=== PATIENT | female | born 2000 | race Caucasian/White ===

== ENCOUNTER 2021-07-01 12:29 | Emergency (ER) | payer BC ==
[2021-07-01] MEDS ORDERED: SODIUM CHLORIDE 0.9% 1,000 ML IV ONE (13:06)
--- NOTE | 2021-07-01 13:23 | ED ---
General Adult HPI - General Chief complaint: Nausea/Vomiting/Diarrhea Stated complaint: 6Wks Preg/Dizziness/Cramping Time Seen by Provider: 07/01/21 12:57 Source: patient, RN notes reviewed Mode of arrival: ambulatory Limitations: no limitations - History of Present Illness Initial comments: Patient is a pleasant 21-year-old female presenting to the emergency department with problems with . Patient believes her last menstrual. Was around May 21. Patient believes she is 6-7 weeks . Patient has had daily nausea and vomiting for the first couple hours. Nausea has improved at this time and does not want medication at this time. Patient has been feeling lightheaded. Patient has occasional abdominal cramping, none at this time. No vaginal bleeding or discharge. - Related Data Home Medications Medication Instructions Recorded Confirmed Ondansetron Odt [Zofran Odt] 4 mg PO Q12HR PRN 07/01/21 07/01/21 Previous Rx's Medication Instructions Recorded Ondansetron Odt [Zofran Odt] 4 mg PO Q8HR PRN #10 tab 07/01/21 Allergies Allergy/AdvReac Type Severity Reaction Status Date / Time No Known Allergies Allergy Verified 07/01/21 13:23 Review of Systems ROS Statement: Those systems with pertinent positive or pertinent negative responses have been documented in the HPI. ROS Other: All systems not noted in ROS Statement are negative. Constitutional: Denies: fever Eyes: Denies: eye pain ENT: Denies: ear pain Respiratory: Denies: cough Cardiovascular: Denies: chest pain Endocrine: Denies: fatigue Gastrointestinal: Reports: nausea, vomiting Genitourinary: Reports: as per HPI. Denies: discharge Musculoskeletal: Denies: back pain Skin: Denies: rash Neurological: Denies: weakness Past Medical History Past Medical History: No Reported History History of Any Multi-Drug Resistant Organisms: None Reported Past Surgical History: No Surgical Hx Reported Past Psychological History: Anxiety, Depression Smoking Status: Former smoker Past Alcohol Use History: None Reported Past Drug Use History: None Reported General Exam Limitations: no limitations General appearance: alert, in no apparent distress Head exam: Present: normocephalic Eye exam: Present: normal appearance Neck exam: Present: normal inspection Respiratory exam: Present: normal lung sounds bilaterally Cardiovascular Exam: Present: regular rate, normal rhythm GI/Abdominal exam: Present: soft. Absent: distended, tenderness, guarding, rebound External exam: Present: normal external exam (RN Korin was present during the entire exam) Speculum exam: Present: normal speculum exam By manual exam: Present: normal by manual exam. Absent: cervical motion tenderness, adnexal tenderness, adnexal mass Extremities exam: Present: normal inspection Neurological exam: Present: alert Psychiatric exam: Present: normal affect, normal mood Skin exam: Present: normal color Course Vital Signs 07/01/21 12:37 Temperature 98.1 F Pulse Rate 88 Respiratory 18 Rate Blood Pressure 116/70 O2 Sat by Pulse 98 Oximetry Medical Decision Making - Medical Decision Making Patient reevaluated and resting comfortably in bed. Patient updated on results and need for follow-up. Case was discussed with Dr. Juárez including ultrasound report was also comfortable with discharge and follow-up. Patient does request nausea medication for discharge. - Lab Data Result diagrams: 07/01/21 13:27 07/01/21 13:27 Lab Results 07/01/21 07/01/21 07/01/21 Range/Units 13:27 13:27 13:27 WBC 9.2 (3.8-10.6) k/uL RBC 4.15 (3.80-5.40) m/uL Hgb 14.0 (11.4-16.0) gm/dL Hct 40.5 (34.0-46.0) % MCV 97.5 (80.0-100.0) fL MCH 33.7 (25.0-35.0) pg MCHC 34.5 (31.0-37.0) g/dL RDW 11.5 (11.5-15.5) % Plt Count 204 (150-450) k/uL MPV 8.6 Neutrophils % 68 % Lymphocytes % 18 % Monocytes % 9 % Eosinophils % 2 % Basophils % 0 % Neutrophils # 6.2 (1.3-7.7) k/uL Lymphocytes # 1.7 (1.0-4.8) k/uL Monocytes # 0.9 (0-1.0) k/uL Eosinophils # 0.2 (0-0.7) k/uL Basophils # 0.0 (0-0.2) k/uL Sodium 136 L (137-145) mmol/L Potassium 4.0 (3.5-5.1) mmol/L Chloride 104 (98-107) mmol/L Carbon Dioxide 23 (22-30) mmol/L Anion Gap 9 mmol/L BUN 12 (7-17) mg/dL Creatinine 0.48 L (0.52-1.04) mg/dL Est GFR (CKD-EPI)AfAm >90 (>60 ml/min/1.73 sqM) Est GFR (CKD-EPI)NonAf >90 (>60 ml/min/1.73 sqM) Glucose 98 (74-99) mg/dL Calcium 9.9 (8.4-10.2) mg/dL Total Bilirubin 0.7 (0.2-1.3) mg/dL AST 23 (14-36) U/L ALT 11 (4-34) U/L Alkaline Phosphatase 33 L (38-126) U/L Total Protein 7.1 (6.3-8.2) g/dL Albumin 4.4 (3.5-5.0) g/dL HCG, Quant 58473.4 mIU/mL Urine Color Urine Appearance (Clear) Urine pH (5.0-8.0) Ur Specific [place] (1.001-1.035) Urine Protein (Negative) Urine Glucose (UA) (Negative) Urine Ketones (Negative) Urine Blood (Negative) Urine Nitrite (Negative) Urine Bilirubin (Negative) Urine Urobilinogen (<2.0) mg/dL Ur Leukocyte Esterase (Negative) Urine WBC (0-5) /hpf Ur Squamous Epith Cells (0-4) /hpf Urine Mucus (None) /hpf Blood Type O Positive Blood Type Recheck No Previous Record Bld Type Recheck Status CABO Indicated 07/01/21 Range/Units 13:27 WBC (3.8-10.6) k/uL RBC (3.80-5.40) m/uL Hgb (11.4-16.0) gm/dL Hct (34.0-46.0) % MCV (80.0-100.0) fL MCH (25.0-35.0) pg MCHC (31.0-37.0) g/dL RDW (11.5-15.5) % Plt Count (150-450) k/uL MPV Neutrophils % % Lymphocytes % % Monocytes % % Eosinophils % % Basophils % % Neutrophils # (1.3-7.7) k/uL Lymphocytes # (1.0-4.8) k/uL Monocytes # (0-1.0) k/uL Eosinophils # (0-0.7) k/uL Basophils # (0-0.2) k/uL Sodium (137-145) mmol/L Potassium (3.5-5.1) mmol/L Chloride (98-107) mmol/L Carbon Dioxide (22-30) mmol/L Anion Gap mmol/L BUN (7-17) mg/dL Creatinine (0.52-1.04) mg/dL Est GFR (CKD-EPI)AfAm (>60 ml/min/1.73 sqM) Est GFR (CKD-EPI)NonAf (>60 ml/min/1.73 sqM) Glucose (74-99) mg/dL Calcium (8.4-10.2) mg/dL Total Bilirubin (0.2-1.3) mg/dL AST (14-36) U/L ALT (4-34) U/L Alkaline Phosphatase (38-126) U/L Total Protein (6.3-8.2) g/dL Albumin (3.5-5.0) g/dL HCG, Quant mIU/mL Urine Color Yellow Urine Appearance Cloudy H (Clear) Urine pH 7.5 (5.0-8.0) Ur Specific [place] 1.017 (1.001-1.035) Urine Protein Negative (Negative) Urine Glucose (UA) Negative (Negative) Urine Ketones Negative (Negative) Urine Blood Negative (Negative) Urine Nitrite Negative (Negative) Urine Bilirubin Negative (Negative) Urine Urobilinogen <2.0 (<2.0) mg/dL Ur Leukocyte Esterase Trace H (Negative) Urine WBC 6 H (0-5) /hpf Ur Squamous Epith Cells 3 (0-4) /hpf Urine Mucus Rare H (None) /hpf Blood Type Blood Type Recheck Bld Type Recheck Status - Radiology Data Radiology results: report reviewed (Ultrasound shows viable IUP rate 119. Estimated 6 weeks 4 days. Large cystic area right adnexa indeterminate etiology. Ovarian cyst is in the differential, other etiologies not excluded.) Disposition Clinical Impression: Hyperemesis gravidarum Disposition: HOME SELF-CARE Condition: Stable Instructions (If sedation given, give patient instructions): Acute Nausea and Vomiting (ED) Additional Instructions: Please do follow-up with your [facility] group in the next day or 2 for recheck. Return for not tolerating fluids, increased pain, fevers, worsening or changing symptoms or other concerns. Prescription has been sent to your pharmacy. Prescriptions: Ondansetron Odt [Zofran Odt] 4 mg PO Q8HR PRN #10 tab PRN Reason: Nausea Is patient prescribed a controlled substance at d/c from ED?: No Referrals: Annetta Muse MD [Primary Care Provider] - 1-2 days Time of Disposition: 15:42
[2021-07-01 13:52] LABS: Basophils % (A) 0 %; Eosinophils # (A) 0.2 k/uL (0-0.7); Eosinophils % (A) 2 %; HCT 40.5 % (34.0-46.0); Lymphocytes # (A) 1.7 k/uL (1.0-4.8); Lymphocytes % (A) 18 %; MCH 33.7 pg (25.0-35.0); MCHC 34.5 g/dL (31.0-37.0); MCV 97.5 fL (80.0-100.0); Mean Platelet Volume 8.6; Monocytes # (A) 0.9 k/uL (0-1.0); Monocytes % (A) 9 %; Neutrophils # (A) 6.2 k/uL (1.3-7.7); Neutrophils % (A) 68 %; Platelet Count 204 k/uL (150-450); RBC 4.15 m/uL (3.80-5.40); RDW 11.5 % (11.5-15.5); WBC 9.2 k/uL (3.8-10.6)
--- NOTE | 2021-07-01 14:13 | US ---
EXAMINATION TYPE: Transabdominal DATE OF EXAM: 07/01/2021 1:56 PM COMPARISON: NONE CLINICAL HISTORY: pain. EXAM PERFORMED: Transvaginal (TV) and Transabdominal (TA) EXAM MEASUREMENTS: GESTATIONAL AGE / DATING Physician Established: Not yet established Dates by LMP: 05/21/2021 (5 weeks/6 days) EDC: 02/25/2022 Dates by First Scan: No previous this is first scan Dates by Current Scan for: (6 weeks/4 days) EDC: 02/20/2022 MATERNAL ANATOMY Uterus: 8.5 x 4.3 x 6.6 cm Right Ovary: not seen, large cystic area in right adnexa Left Ovary: 3.3 x 1.7 x 2.3 cm Post CDS / Adnexa: large cystic area right adnexa measures 10.5 x 8.6 x 9.3 cm. Ovary not seen. GESTATION / SURVEY CRL: 6.3 cm (6 weeks/4 days) Yolk Sac (normal less than 6mm): 0.3 cm Heart Rate: 119 bpm Rhythm: Normal IUP: Viable IUP Date of LMP: 05/21/2021 Beta HcG (if available): not available at time of exam IMPRESSION: Viable intrauterine with a heart rate of 119 bpm estimated 6 weeks 4 days. However, there i s a large 10.5 x 8.6 x 9.3 cm cystic area in the right adnexa indeterminate etiology. Ovarian cyst in the differential other etiologies not excluded. Correlate clinically
[2021-07-01 14:16] LABS: ALT 11 U/L (4-34); AST 23 U/L (14-36); African American GFR (CKD) >90 (>60 ml/min/1.73 sqM); Albumin 4.4 g/dL (3.5-5.0); Alkaline Phosphatase 33 U/L (38-126); Anion Gap 9 mmol/L; Blood Urea Nitrogen 12 mg/dL (7-17); Calcium 9.9 mg/dL (8.4-10.2); Carbon Dioxide 23 mmol/L (22-30); Chloride 104 mmol/L (98-107); Glucose 98 mg/dL (74-99); Non-African American GFR(CKD) >90 (>60 ml/min/1.73 sqM); Sodium 136 mmol/L (137-145); Total Bilirubin 0.7 mg/dL (0.2-1.3); Total Protein 7.1 g/dL (6.3-8.2)
[2021-07-01 14:34] LABS: Appearance,Urine Cloudy (Clear); Bilirubin,Urine Negative (Negative); Blood,Urine Negative (Negative); Color,Urine Yellow; Glucose,Urine (UA) Negative (Negative); Ketones,Urine Negative (Negative); Leukocyte Esterase,Urine Trace (Negative); Mucus,Urine Rare /hpf; Nitrite,Urine Negative (Negative); PH, Urine 7.5 (5.0-8.0); Protein,Urine Negative (Negative); Specific Gravity,Urine 1.017 (1.001-1.035); Squamous Epithelial Cell,Urine 3 /hpf (0-4); Urobilinogen,Urine <2.0 mg/dL (<2.0); WBC,Urine 6 /hpf (0-5)
[2021-07-01 14:57] LABS: HCG,Quantitative Serum 70230.4 mIU/mL
[2021-07-01 15:58] VITALS: BP 118/69; PULSE 72; RESP 16; TEMP 97.3
[2021-07-02 14:13] LABS: C. trachomatis,PCR Negative (Neg,Equiv); Chlamydia trachomatis Source Vagina; N. gonorrhoeae,PCR Negative (Neg,Equiv); Neisseria Source Vagina
== END 2021-07-01 15:58 | disposition home or self-care (01) ==
LOC: EC 12:29
DX: O26.891 Other specified pregnancy related conditions, first trimester (principal); O21.0 Mild hyperemesis gravidarum; F41.9 Anxiety disorder, unspecified; F32.9 Major depressive disorder, single episode, unspecified; Z3A.01 Less than 8 weeks gestation of pregnancy; Z87.891 Personal history of nicotine dependence
CPT/HCPCS: 36415; 76801; 76817; 80053; 81001; 84702; 85025; 86900; 86901; 87491; 87591; 96360; 99284

== ENCOUNTER → 2022-01-25 | Outpatient (CLI) | payer OTHER | END | disposition home or self-care (01) | LOC: LABWHC1 16:15 | PROVIDERS: ATTEND Midwife | DX: N83.292 Other ovarian cyst, left side (principal) | CPT/HCPCS: 36415; 86304 ==

== ENCOUNTER → 2023-09-01 | Outpatient (CLI) | payer OTHER ==
--- NOTE | 2023-09-01 11:18 | US ---
EXAMINATION TYPE: US abdomen complete DATE OF EXAM: 09/01/2023 COMPARISON: NONE CLINICAL INDICATION: Female, 23 years old with history of R10.30 LOWER ABDOMINAL PAIN, UNSPECIFIED; I ntermittent Right and Left Lower abdomen pain x 3 months TECHNIQUE: Multiple sonographic images of the abdomen are obtained. FINDINGS: EXAM MEASUREMENTS: Liver Length: 13.9 cm Gallbladder Wall: 0.3 cm CBD: 0.3 cm Spleen: 11.0 cm Right Kidney: 10.9 x 4.6 x 4.9 cm Left Kidney: 10.7 x 5.4 x 5.4 cm [employer]GETABLE WORKER NOTES: Limited visualization of the bilateral kidneys due to rib shadowing Pancreas: wnl Liver: wnl Gallbladder: wnl Evidence for sonographic Callaway's sign: no CBD: wnl Spleen: wnl Right Kidney: wnl Left Kidney: wnl Upper IVC: wnl Abd Aorta: wnl IMPRESSION: 1. Unremarkable abdomen
--- NOTE | 2023-09-02 08:31 | US ---
EXAMINATION TYPE: US pelvic complete DATE OF EXAM: 09/01/2023 COMPARISON: NONE CLINICAL INDICATION: Female, 23 years old with history of R10.30 LOWER ABDOMINAL PAIN, UNSPECIFIED; I ntermittent bilateral pelvic pain; ; Regular mensis first week of august with another cycle 4 days later - ?Due to Plan B medication TECHNIQUE: . Transabdominal sonographic images of the pelvis were acquired. Transvaginal sonographi c images were medically necessary to better assess the following anatomy: Date of LMP: 08/17/2023 EXAM MEASUREMENTS: Uterus: 7.3 x 3.9 x 5.3 cm Endometrial Stripe: 0.2 cm Right Ovary: 4.9 x 2.8 x 3.3 cm Left Ovary: 3.8 x 1.8 x 1.7 cm Uterus: 7.3 x 3.9 x 5.3 cm Endometrial Stripe: 0.2 cm Right Ovary: 4.9 x 2.8 x 3.3 cm ?hemorrhagic cyst = 1.9 x 2.0 x 2.4 cm Left Ovary: 3.8 x 1.8 x 1.7 cm Spectral, color and waveform doppler imaging shows good arterial and venous flow within the ovaries ; there is no evidence for ovarian torsion. 5. Bilateral Adnexa: wnl 6. Posterior cul-de-sac: trace fluid IMPRESSION: 1. Complex cyst right ovary. Follow-up in 6 weeks or following the next normal menstrual period is re commended.
== END | disposition home or self-care (01) ==
LOC: RADUSWWP 08:29
PROVIDERS: ATTEND Family Medicine
DX: R10.30 Lower abdominal pain, unspecified (principal)
CPT/HCPCS: 76700; 76856; 93975

== ENCOUNTER → 2023-12-02 | Outpatient (CLI) | payer OTHER ==
--- NOTE | 2023-12-02 19:21 | US ---
EXAMINATION TYPE: US transvaginal DATE OF EXAM: 12/02/2023 COMPARISON: NONE CLINICAL INDICATION: Female, 23 years old with history of R10.30 LOWER ABDOMINAL PAIN, UNSPECIFIED; p ain hx of cyst TECHNIQUE: Transvaginal (TV). EXAM MEASUREMENTS: Uterus: 6.5 x 4.1 x 4.5 cm Endometrial Stripe: .2 cm Right Ovary: 3.5 x 2.1 x 1.4 cm Left Ovary: 3.4 x 1.5 x 1.4 cm 1. Uterus: Anteverted wnl 2. Endometrium: wnl 3. Right Ovary: Follicles seen 4. Left Ovary: Follicles seen. 5. Bilateral Adnexa: wnl 6. Posterior cul-de-sac: wnl IMPRESSION: No evidence for acute pelvic process
== END | disposition home or self-care (01) ==
LOC: RADUSWWP 16:33
PROVIDERS: ATTEND Family Medicine
DX: R10.30 Lower abdominal pain, unspecified (principal)
CPT/HCPCS: 76830